=== PATIENT | female | born 1990 | race Hispanic/Latino ===

== ENCOUNTER 2017-01-16 13:25 | Emergency (ER) | payer SELFPAY ==
[2017-01-16 13:37] VITALS: BP 140/91
--- NOTE | 2017-01-16 14:20 | XRay Report ---
Left knee 3 views: History: Pain and swelling. Findings: No bony or articular abnormality. No fracture dislocation or soft tissue calcification. No joint effusion. Impression: Essentially negative left knee.
[2017-01-16] MEDS ORDERED: TORADOL IM ONE (16:21)
[2017-01-16] MEDS ORDERED: FLEXERIL PO ONE (16:21)
--- NOTE | 2017-01-16 17:31 | Emergency Department Report ---
Entered by EMILEE SANTOS, acting as scribe for ANKUR FRYE PA. ED Lower Extremity HPI - General Chief Complaint: Extremity Injury, Lower Stated Complaint: KNEE INJURY Time Seen by Provider: 01/16/17 15:56 Source: patient Mode of arrival: Ambulatory Limitations: No Limitations - History of Present Illness Initial Comments: 26 y/o female with no significant PMHx presents to the ED c/o left knee pain that began this afternoon 4 hours [employer]. Patient states she fell down a step between bedroom and kitchen, and subsequently heard a pop in left knee. Rates pain a 10/10 in severity, which she describes as sharp in quality. Aggravated with movement and alleviated with immobilization. Associated left knee swelling , but she denies weakness, paresthesias, numbness, and tingling. MD Complaint: knee injury (left) -: This afternoon (4 hours [employer]) Injury: Knee: Left Type of Injury: other (fall down a step) Place: home Severity: severe Severity scale (0 -10): 10 Improves With: immobilization Worsens With: movement Context: fall Other Symptoms: other (left knee swelling) Associated Symptoms: snap/pop sensation, swelling, able to partially bear weight. denies: numbness, tingling - Related Data Previous Rx's Medication Instructions Recorded Last Taken Type Cyclobenzaprine [Flexeril] 10 mg PO QHS PRN #30 tablet 01/16/17 Unknown Rx Naproxen [Naprosyn] 500 mg PO BID #30 tablet 01/16/17 Unknown Rx Allergies Allergy/AdvReac Type Severity Reaction Status Date / Time No Known Allergies Allergy Unverified 01/16/17 13:33 ED Review of Systems Comment: All other systems reviewed and negative Constitutional: no symptoms reported. denies: chills, fever Respiratory: no symptoms reported. denies: cough, shortness of breath, wheezing Cardiovascular: denies: chest pain, palpitations Endocrine: no symptoms reported Gastrointestinal: denies: abdominal pain, nausea, vomiting Musculoskeletal: arthralgia (left knee pain) Skin: denies: rash, lesions Neurological: denies: headache, weakness, numbness, paresthesias, other (LOC) ED Past Medical Hx - Past Medical History Previous Medical History?: No - Surgical History Past Surgical History?: Yes Hx Cholecystectomy: Yes Additional Surgical History: leep procedure. tonsils and adnoids removed - Social History Smoking Status: Current Every Day Smoker Substance Use Type: Alcohol - Medications Home Medications: Home Medications Medication Instructions Recorded Confirmed Last Taken Type Cyclobenzaprine [Flexeril] 10 mg PO QHS PRN #30 tablet 01/16/17 Unknown Rx Naproxen [Naprosyn] 500 mg PO BID #30 tablet 01/16/17 Unknown Rx ED Physical Exam - General Limitations: No Limitations General appearance: alert, in no apparent distress - Head Head exam: Present: atraumatic, normocephalic - Eye Eye exam: Present: normal appearance, PERRL, EOMI Pupils: Present: normal accommodation - ENT ENT exam: Present: normal exam, mucous membranes moist - Neck Neck exam: Present: normal inspection, full ROM - Respiratory Respiratory exam: Present: normal lung sounds bilaterally. Absent: respiratory distress, wheezes, rales, rhonchi, stridor - Cardiovascular Cardiovascular Exam: Present: regular rate, normal rhythm. Absent: systolic murmur, diastolic murmur, rubs, gallop - GI/Abdominal GI/Abdominal exam: Present: soft, normal bowel sounds. Absent: distended - Extremities Exam Extremities exam: Present: full ROM, tenderness (lateral and anterior aspects of left knee are tender), normal capillary refill. Absent: pedal edema, joint swelling, calf tenderness - Expanded Lower Extremity Exam Left Hip exam: Present: normal inspection, full ROM. Absent: tenderness, swelling Upper Leg exam: Present: normal inspection, full ROM. Absent: tenderness, swelling Knee exam: Present: full ROM, tenderness (anterior and lateral aspects of left knee), full knee extension. Absent: swelling, abrasion, laceration, ecchymosis , deformity, crepidus, dislocation, erythema, effusion, pain/laxity with valgus , pain/laxity with varus Lower Leg exam: Present: normal inspection, full ROM Ankle exam: Present: normal inspection, full ROM Foot/Toe exam: Present: normal inspection, full ROM Neuro vascular tendon exam: Present: no vascular compromise. Absent: pulse deficit, abnormal cap refill, motor deficit, sensory deficit, tendon deficit, extremity cold to touch, pallor, abnormal 2-point discrimination, decreased fine /light touch Gait: Positive: observed and limited by pain - Back Exam Back exam: Present: normal inspection, full ROM - Neurological Exam Neurological exam: Present: alert, oriented X3 - Psychiatric Psychiatric exam: Present: normal affect, normal mood - Skin Skin exam: Present: warm, dry, intact. Absent: rash ED Course Vital Signs 01/16/17 01/16/17 13:33 14:54 Temperature 98.7 F 97.9 F Pulse Rate 111 H 103 H Respiratory 18 16 Rate Blood Pressure 140/91 O2 Sat by Pulse 99 97 Oximetry ED Lower Extremity MDM - Medical Decision Making 26-year-old female presents with left knee since this afternoon ED course: Patient was given a muscle relaxer and Toradol and received an X-ray of left knee. X-ray shows no fractures nor dislocations. Discussed his findings with the patient Patient is not ill-appearing. Discussed with patient to keep knee elevated Discussed the follow-up with orthopedic as referred. Discuss her symptoms return or worsen to return to the ED Patient states understanding and will follow instructions. Vital signs stable. Patient is in no acute distress. ED Disposition Clinical Impression: Arthralgia of knee, left, Fall (on) (from) other stairs and steps, initial encounter Disposition: - TO HOME OR SELFCARE Is pt being admited?: No Does the pt Need Aspirin: No Condition: Stable Instructions: Arthralgia (ED), Knee Pain (ED), Knee Exercises (GEN) Additional Instructions: your x-ray results were normal. Instructions as given. Particular medication as prescribed. Follow-up with primary care physician. Prescriptions: Cyclobenzaprine [Flexeril] 10 mg PO QHS PRN #30 tablet PRN Reason: Muscle Spasm Naproxen [Naprosyn] 500 mg PO BID #30 tablet Referrals: PRIMARY CARE, [Primary Care Provider] - 3-5 Days [facility] [Outside] - 3-5 Days [facility] [Outside] - 3-5 Days Forms: Work/School Release Form(ED) Time of Disposition: 17:19 This documentation as recorded by the DANIELLE chong JASMINE,accurately reflects the service I personally performed and the decisions made by ,ANKUR FRYE PA.
== END 2017-01-16 17:31 | disposition home or self-care (01) ==
LOC: ED 13:25
DX: M25.562 Pain in left knee (principal); M79.89 Other specified soft tissue disorders; F17.210 Nicotine dependence, cigarettes, uncomplicated; Z90.49 Acquired absence of other specified parts of digestive tract; W10.9XXA Fall (on) (from) unspecified stairs and steps, initial encounter; Y93.89 Activity, other specified; Y92.89 Other specified places as the place of occurrence of the external cause; Y99.8 Other external cause status
CPT/HCPCS: 73562; 96372; 99283; J1885